=== PATIENT | female | born 1940 | race Caucasian/White ===

== ENCOUNTER 2017-04-05 08:31 | Day surgery (SDC) | payer OTHER ==
[~2017-04-05] VITALS: Ht 165.1 cm; Wt 92.5 kg
[~2017-04-05 08:31] MED LIST: ASPI325 PO; ASPI81CH PO; ATEN25; CLOP75 PO; GABA300 PO; HYDACE5 PO; HYDR1TAB94 PO; LISI5 PO; METO25ER PO; METO50ER PO; NITR.4SL SL; Nitrostat0.4 MG SL; OMEP20ER PO; SPIHYD PO
[2017-04-05] MEDS ORDERED: ACET325 (09:01)
== END 2017-04-05 12:05 | disposition home or self-care (01) ==
LOC: ORSCSDS 08:31
PROVIDERS: Podiatrist Foot & Ankle Surgery
PROC: 0SGQ04Z Fusion of Left Toe Phalangeal Joint with Internal Fixation Device, Open Approach (ICD-10-PCS; principal; 2017-04-05 09:55)
DX: M12.872 Other specific arthropathies, not elsewhere classified, left ankle and foot (principal); I10 Essential (primary) hypertension; J44.9 Chronic obstructive pulmonary disease, unspecified; I25.10 Atherosclerotic heart disease of native coronary artery without angina pectoris; Z87.891 Personal history of nicotine dependence; E11.9 Type 2 diabetes mellitus without complications; Z86.73 Personal history of transient ischemic attack (TIA), and cerebral infarction without residual deficits; Z79.82 Long term (current) use of aspirin; Z79.899 Other long term (current) drug therapy
CPT/HCPCS: 82947; C1713; C1769; J0171; J0690; J1100; J2250; J2405; J3010; J7120

== ENCOUNTER 2018-02-21 05:20 | Day surgery (SDC) | payer OTHER ==
[~2018-02-21] VITALS: Ht 162.6 cm; Wt 96.1 kg
[~2018-02-21 05:20] MED LIST changes: +ACET325
== END 2018-02-21 11:43 | disposition home or self-care (01) ==
LOC: ORSCSDS 05:20
PROVIDERS: Podiatrist Foot & Ankle Surgery
PROC: 0SPQ04Z Removal of Internal Fixation Device from Left Toe Phalangeal Joint, Open Approach (ICD-10-PCS; principal; 2018-02-21 10:15)
DX: T84.84XA Pain due to internal orthopedic prosthetic devices, implants and grafts, initial encounter (principal); I10 Essential (primary) hypertension; I25.10 Atherosclerotic heart disease of native coronary artery without angina pectoris; E66.01 Morbid (severe) obesity due to excess calories; Z68.36 Body mass index [BMI] 36.0-36.9, adult; Z79.899 Other long term (current) drug therapy
CPT/HCPCS: J0690; J3010; J7120

== ENCOUNTER 2019-03-12 08:40 | Day surgery (SDC) | payer OTHER ==
[~2019-03-12] VITALS: Ht 162.6 cm; Wt 95.4 kg
[~2019-03-12 08:40] MED LIST changes: +ATOR80 PO; +LISI20 PO; +Lopressor 25 mg25 MG PO; +Norco 7.5-3251 EACH PO; +VITAMIN D32000 UNI3 PO
--- NOTE | 2019-03-12 16:04 | NUR ---
PT DISCHARGE INSTRUCTIONS GONE OVER WITH HER AND SPOUSE. BOTH VERBALIZE UNDERSTANDING OF INSTRUCTIONS. SALINE LOCK OUT WITH CATHETER INTACT. CLOTH DOT PLACED RIGHT RADIAL SITE AND ARM BOARD IN PLACE. PT TO PRIVATE VEHICLE WITH ESCORT.
== END 2019-03-12 16:00 | disposition home or self-care (01) ==
LOC: MHTC 08:40
PROC: 4A023N7 Measurement of Cardiac Sampling and Pressure, Left Heart, Percutaneous Approach (ICD-10-PCS; principal; 2019-03-12)
PROC: B201YZZ Plain Radiography of Multiple Coronary Arteries using Other Contrast (ICD-10-PCS; principal; 2019-03-12)
DX: I25.119 Atherosclerotic heart disease of native coronary artery with unspecified angina pectoris (principal); E78.5 Hyperlipidemia, unspecified; I12.9 Hypertensive chronic kidney disease with stage 1 through stage 4 chronic kidney disease, or unspecified chronic kidney disease; N18.9 Chronic kidney disease, unspecified; M19.90 Unspecified osteoarthritis, unspecified site; I70.1 Atherosclerosis of renal artery; Z95.5 Presence of coronary angioplasty implant and graft; Z88.5 Allergy status to narcotic agent; Z88.6 Allergy status to analgesic agent; Z88.8 Allergy status to other drugs, medicaments and biological substances
CPT/HCPCS: 93454; 99152; 99153; C1769; C1894; J0360; J1644; J2250; J2405; J3010; J7030; Q9967

== ENCOUNTER → 2020-05-06 | Outpatient (CLI) | payer OTHER ==
[~2020-05-06] MED LIST changes: +Norco 5-325 Ta1 EACH PO; +Zofran4 MG PO
== END | disposition home or self-care (01) ==
LOC: LAB 14:20 → LAB SHORT 14:20
DX: L08.9 Local infection of the skin and subcutaneous tissue, unspecified (principal)
CPT/HCPCS: 87070; 87205

== ENCOUNTER → 2020-08-18 | Outpatient (CLI) | payer OTHER | LOC: LAB 14:00 → LAB SHORT 14:00 | DX: L08.9 Local infection of the skin and subcutaneous tissue, unspecified (principal) | CPT/HCPCS: 87070; 87205 ==

== ENCOUNTER 2020-09-10 07:15 | Emergency (ER) | payer OTHER ==
[~2020-09-10] VITALS: Ht 162.6 cm; Wt 113.4 kg
[~2020-09-10 07:15] MED LIST changes: -Norco 5-325 Ta1 EACH PO; -Zofran4 MG PO
[2020-09-10 08:56] LABS: BASOPHILS ABSOLUTE AUTO 0.06 K/mm3 (0.00-0.23); BASOPHILS PERCENT AUTO 1 % (0-2); EOSINOPHILS ABSOLUTE AUTO 0.13 K/mm3 (0.00-0.68); EOSINOPHILS PERCENT AUTO 1 % (0-6); Hematocrit 42.3 % (33.0-51.0); Hemoglobin 14.2 g/dL (11.5-16.0); IMMATURE GRAN ABSOLUTE AUTO 0.03 K/mm3 (0.00-0.10); IMMATURE GRAN PERCENT AUTO 0 % (0-1); LYMPHOCYTES ABSOLUTE AUTO 2.89 K/mm3 (0.84-5.20); LYMPHOCYTES PERCENT AUTO 31 % (21-46); MONOCYTES ABSOLUTE AUTO 1.13 K/mm3 (0.16-1.47); MONOCYTES PERCENT AUTO 12 % (4-13); Mean Corpuscular HGB 30.9 pg (26.0-34.0); Mean Corpuscular HGB Conc 33.6 g/dL (31.5-36.5); Mean Corpuscular Volume 92 fL (80-100); Mean Platelet Volume 9.6 fL (9.1-12.4); NEUTROPHILS PERCENT AUTO 54 % (41-73); Platelet Count 206 K/mm3 (150-400); RDW Standard Deviation 43.8 fL (35.1-46.3); Red Blood Cell Count 4.59 M/mm3 (3.80-5.20); White Blood Cell Count 9.24 K/mm3 (4.00-11.30)
[2020-09-10 09:04] LABS: Appearance, Urine Clear (Clear); Bilirubin, Urine Neg (Neg); Blood, Urine 1+ (Neg); Color, Urine Yellow (P-Yellow); Glucose Qualitative, Urine Neg (Neg); Ketones, Urine Neg (Neg); Leukocyte Esterase, Urine 2+ (Neg); Nitrite, Urine Neg (Neg); Protein, Urine 2+ (Neg); Urobilinogen, Urine NORM (Normal)
[2020-09-10 09:17] LABS: Alanine Aminotransfer (ALT/SGP 19 U/L (12-78); Albumin, Blood 3.7 g/dL (3.4-5.0); Albumin/Globulin Ratio 0.9 (0.8-1.8); Alk Phos 56 U/L (50-136); Anion Gap 4 mmol/L (6-16); Aspartate Aminotrans (AST/SGOT 13 U/L (12-37); Bilirubin, Total 0.5 mg/dL (0.1-1.0); Blood Urea Nitrogen 24 mg/dL (8-24); Bun/Creatinine Ratio 27.8 (12.0-20.0); CO2, Blood 28 mmol/L (21-32); Calcium, Blood 9.4 mg/dL (8.5-10.1); Chloride, Blood 106 mmol/L (98-108); Creatinine, Blood 0.86 mg/dL (0.40-1.00); Globulin, Blood 3.9 g/dL (2.2-4.0); Glomerular Filtration Rate >60 (60-); Glucose, Blood 90 mg/dL (70-99); Potassium, Blood 4.1 mmol/L (3.5-5.5); Sodium, Blood 138 mmol/L (136-145); Total Protein, Blood 7.6 g/dL (6.4-8.2)
[2020-09-10 09:23] LABS: Bacteria Few /hpf; Red Blood Cells, Urine 0-2 /hpf (0-2); Squamous Epithelial Cells Mod /hpf (Few)
[2020-09-10] MEDS ORDERED: Norco 5-325 Ta1 EACH PO (10:55)
[2020-09-10] MEDS ORDERED: Zofran4 MG PO (10:55)
== END 2020-09-10 11:03 | disposition home or self-care (01) ==
LOC: ER 07:15
PROVIDERS: Emergency Medicine
DX: R10.30 Lower abdominal pain, unspecified (principal); R59.0 Localized enlarged lymph nodes; Z88.5 Allergy status to narcotic agent; Z88.6 Allergy status to analgesic agent; Z88.8 Allergy status to other drugs, medicaments and biological substances; Z79.82 Long term (current) use of aspirin; Z79.899 Other long term (current) drug therapy
CPT/HCPCS: 36415; 74177; 80053; 81001; 83690; 85025; 87086; 96374-59; 99284-25; J1885; Q9967

== ENCOUNTER 2021-06-19 06:10 | Day surgery (SDC) | payer OTHER ==
[~2021-06-19] VITALS: Ht 162.6 cm; Wt 98.4 kg
[~2021-06-19 06:10] MED LIST changes: +Norco 5-325 Ta1 EACH PO; +Zofran4 MG PO
[2021-06-19] MEDS ORDERED: MELO7.5 PO (07:02)
[2021-06-19] MEDS ORDERED: METF500 PO (07:02)
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
== END 2021-06-19 10:35 | disposition home or self-care (01) ==
LOC: ORSCSDS 06:10
PROVIDERS: Orthopaedic Surgery
PROC: 0RBJ4ZZ Excision of Right Shoulder Joint, Percutaneous Endoscopic Approach (ICD-10-PCS; principal; 2021-06-19 07:30)
DX: M75.121 Complete rotator cuff tear or rupture of right shoulder, not specified as traumatic (principal); M75.41 Impingement syndrome of right shoulder; M75.51 Bursitis of right shoulder; M19.011 Primary osteoarthritis, right shoulder; S46.111A Strain of muscle, fascia and tendon of long head of biceps, right arm, initial encounter; I10 Essential (primary) hypertension; I25.10 Atherosclerotic heart disease of native coronary artery without angina pectoris; Z79.899 Other long term (current) drug therapy; E66.9 Obesity, unspecified; Z68.36 Body mass index [BMI] 36.0-36.9, adult
CPT/HCPCS: 82947; A9270; J0171; J0690; J1100; J2370; J2405; J2704; J3010; J7120

== ENCOUNTER 2022-05-21 06:11 | Day surgery (SDC) | payer OTHER ==
[~2022-05-21] VITALS: Ht 162.6 cm; Wt 98.3 kg
[~2022-05-21 06:11] MED LIST changes: -ACET325; +Acetaminophen650 M1 PO; +MELO7.5 PO; +METF500 PO
[2022-05-21] MEDS ORDERED: PRINIVIL5 M1 PO (07:42)
[2022-05-21] MEDS ORDERED: MOBIC15 MG PO (07:43)
[2022-05-21] MEDS ORDERED: METO25 PO (07:44)
[2022-05-21] MEDS ORDERED: HYDR1TAB94 (07:46)
--- NOTE | 2022-05-21 08:04 | NUR ---
05/21/22 0804 Gisel Ortega 0755: PRE-OP MEDS OXYCODONE AND TYLENOL WILL BE GIVEN IN POST-OP PER DR WILSON D/T NAUSEA
--- NOTE | 2022-05-21 09:06 | NUR ---
05/21/22 0906 MARGARETTE DE LA GARZA 0.1MG OF EPI ADDED TO 20MLS OF ROPIVACAINE 0.5% TO CREATE A LOCAL SOLUTION OF ROPIVACAINE 0.5% WITH EPI 1:200,000. LOCAL POURED ONTO STERILE FIELD FOR USE DURING CASE.
--- NOTE | 2022-05-21 12:52 | NUR ---
05/21/22 1252 Ariana Harrison LATE ENTRY- WHILE IN STEP DOWN PT DENIED NAUSEA AND TOLERATED PO CRACKERS AND PO FLUIDS WELL. VSS WHILE IN STEP DOWN. PT STATED HER PAIN WAS "MINIMAL 2/10" AT THE OP SITE AND STATED IT WAS TOLERABLE. PT HAD AND SON AT CHAIRSIDE. RN WENT OVER DISCHARGE INSTRUCTIONS WITH PT AND FAMILY UNTIL ALL QUESTIONS WERE ANSWERED. PT DEMONSTRATED THE INCENTIVE SPIROMETER X4. RN ASSISTED PT TO DRESS AND ADJUSTED THE SLING FOR COMFORT AND POSITIONING WHILE DEMONSTRATING PLACEMENT FOR PT AND . PT TAKEN OUT TO CAR VIA WHEELCHAIR. PT AND FAMILY VOICED SATISFACTION WITH THE CARE TODAY AT THE [facility]. TXA RAN FROM [id number] ORDERS. TEACHING R/T THE SCOPE PATCH PROVIDED TO PT AND PT'S FAMILY. TYLENOL GIVEN AT 1100 BUT PT REFUSED THE PO OXYCODONE WHILE IN STEP DOWN. DR WILSON NOTIFIED AND OK'D.
== END 2022-05-21 12:20 | disposition home or self-care (01) ==
LOC: ORSCSDS 06:11
PROVIDERS: Orthopaedic Surgery
PROC: 0RRJ00Z Replacement of Right Shoulder Joint with Reverse Ball and Socket Synthetic Substitute, Open Approach (ICD-10-PCS; principal; 2022-05-21 07:30)
DX: M19.011 Primary osteoarthritis, right shoulder (principal); I10 Essential (primary) hypertension; I25.10 Atherosclerotic heart disease of native coronary artery without angina pectoris; E11.9 Type 2 diabetes mellitus without complications; Z79.84 Long term (current) use of oral hypoglycemic drugs; E66.9 Obesity, unspecified; Z68.37 Body mass index [BMI] 37.0-37.9, adult; Z86.73 Personal history of transient ischemic attack (TIA), and cerebral infarction without residual deficits; Z79.899 Other long term (current) drug therapy
CPT/HCPCS: 73030; 82947; A9270; C1713; C1776; J0171; J0696; J1100; J1200; J2370; J2405; J2704; J2795; J3010; J3370; J7120

== ENCOUNTER 2022-07-14 07:19 | Emergency (ER) | payer OTHER ==
[~2022-07-14] VITALS: Ht 165.1 cm; Wt 96.2 kg
[~2022-07-14 07:19] MED LIST changes: +HYDR1TAB94; +METO25 PO; +MOBIC15 MG PO; +PRINIVIL5 M1 PO
[2022-07-14 07:59] LABS: BASOPHILS ABSOLUTE AUTO 0.05 K/mm3 (0.00-0.23); BASOPHILS PERCENT AUTO 0 % (0-2); EOSINOPHILS ABSOLUTE AUTO 0.03 K/mm3 (0.00-0.68); EOSINOPHILS PERCENT AUTO 0 % (0-6); Hematocrit 38.6 % (33.0-51.0); Hemoglobin 12.8 g/dL (11.5-16.0); IMMATURE GRAN ABSOLUTE AUTO 0.08 K/mm3 (0.00-0.10); IMMATURE GRAN PERCENT AUTO 1 % (0-1); LYMPHOCYTES ABSOLUTE AUTO 1.06 K/mm3 (0.84-5.20); LYMPHOCYTES PERCENT AUTO 9 % (21-46); MONOCYTES ABSOLUTE AUTO 0.97 K/mm3 (0.16-1.47); MONOCYTES PERCENT AUTO 8 % (4-13); Mean Corpuscular HGB 30.4 pg (26.0-34.0); Mean Corpuscular HGB Conc 33.2 g/dL (31.5-36.5); Mean Corpuscular Volume 92 fL (80-100); Mean Platelet Volume 10.1 fL (9.1-12.4); NEUTROPHILS ABSOLUTE AUTO 10.17 K/mm3 (1.96-9.15); NEUTROPHILS PERCENT AUTO 82 % (41-73); Platelet Count 193 K/mm3 (150-400); RDW Coefficient Variation 13.3 % (11.7-14.2); RDW Standard Deviation 45.1 fL (35.1-46.3); Red Blood Cell Count 4.21 M/mm3 (3.80-5.20); White Blood Cell Count 12.36 K/mm3 (4.00-11.30)
[2022-07-14 08:22] LABS: Albumin, Blood 2.3 g/dL (3.4-5.0); Albumin/Globulin Ratio 0.8 (0.8-1.8); Bilirubin, Total 0.6 mg/dL (0.1-1.0); Bun/Creatinine Ratio 29.7 (12.0-20.0); Calcium, Blood 6.7 mg/dL (8.5-10.1); Creatinine, Blood 0.64 mg/dL (0.40-1.00); Globulin, Blood 2.9 g/dL (2.2-4.0); Potassium, Blood 2.8 mmol/L (3.5-5.5); Total Protein, Blood 5.2 g/dL (6.4-8.2)
[2022-07-14 10:35] LABS: Influenza A, PCR NEGATIVE (NEGATIVE); Influenza B, PCR NEGATIVE (NEGATIVE); Resp Syncytial Virus, PCR NEGATIVE (NEGATIVE); SARS-Cov-2 (COVID-19) PCR, MMC NEGATIVE (NEGATIVE)
[2022-07-14 13:41] LABS: Source, Urine Clean Catch
[2022-07-14 14:17] LABS: Appearance, Urine Hazy (Clear); Bilirubin, Urine Neg (Neg); Blood, Urine 2+ (Neg); Color, Urine Yellow (P-Yellow); Glucose Qualitative, Urine Neg (Neg); Ketones, Urine 2+ (Neg); Leukocyte Esterase, Urine 1+ (Neg); Nitrite, Urine Pos (Neg); Protein, Urine 3+ (Neg); Urobilinogen, Urine NORM (Normal)
[2022-07-14 14:42] LABS: Squamous Epithelial Cells Few /hpf (Few)
[2022-07-14 14:43] LABS: Bacteria Many /hpf; Granular Casts 0-2 /lpf (0); Hyaline Casts 0-2 /lpf (0-2)
[2022-07-14] MEDS ORDERED: AMOCLA875 PO (15:10)
[2022-07-14 15:30] VITALS: BP 98/76
== END 2022-07-14 15:51 | disposition home or self-care (01) ==
LOC: ER 07:19
PROVIDERS: Emergency Medicine; Physician Assistant
DX: N39.0 Urinary tract infection, site not specified (principal); E87.6 Hypokalemia; E83.42 Hypomagnesemia; E83.51 Hypocalcemia; I25.10 Atherosclerotic heart disease of native coronary artery without angina pectoris; Z88.8 Allergy status to other drugs, medicaments and biological substances; Z88.5 Allergy status to narcotic agent; Z88.6 Allergy status to analgesic agent; Z79.899 Other long term (current) drug therapy; Z79.82 Long term (current) use of aspirin; Z20.822 Contact with and (suspected) exposure to COVID-19
CPT/HCPCS: 0241U; 36415; 71045; 80053; 81001; 83605; 83735; 85025; 87077; 87086; 87186; 93005; 93010; 96361; 96365; 96366; 96368; 96375; 96376; 99284-25; A9270; J2270; J2405; J3475; J3480; J7030; J7050

== ENCOUNTER 2022-07-16 16:02 | Inpatient (IN) | payer OTHER ==
[~2022-07-16] VITALS: Ht 165.1 cm; Wt 103.4 kg
[~2022-07-16 16:02] MED LIST changes: +AMOCLA875 PO; -HYDR1TAB94
[2022-07-16 16:59] LABS: Hematocrit 38.5 % (33.0-51.0); Hemoglobin 12.8 g/dL (11.5-16.0); Mean Corpuscular HGB 30.4 pg (26.0-34.0); Mean Corpuscular HGB Conc 33.2 g/dL (31.5-36.5); Mean Corpuscular Volume 91 fL (80-100); Mean Platelet Volume 10.7 fL (9.1-12.4); Platelet Count 291 K/mm3 (150-400); RDW Coefficient Variation 14.6 % (11.7-14.2); RDW Standard Deviation 49.1 fL (35.1-46.3); Red Blood Cell Count 4.21 M/mm3 (3.80-5.20); White Blood Cell Count 15.88 K/mm3 (4.00-11.30)
[2022-07-16 17:15] LABS: Albumin, Blood 2.7 g/dL (3.4-5.0); Albumin/Globulin Ratio 0.6 (0.8-1.8); Bilirubin, Total 0.6 mg/dL (0.1-1.0); Calcium, Blood 9.1 mg/dL (8.5-10.1); Globulin, Blood 4.9 g/dL (2.2-4.0); Potassium, Blood 4.4 mmol/L (3.5-5.5); Total Protein, Blood 7.6 g/dL (6.4-8.2)
[2022-07-16 17:58] LABS: BAND PERCENT MAN 17 % (0-8); BASOPHILS PERCENT MAN 0 % (0-2); EOSINOPHILS PERCENT MAN 0 % (0-6); LYMPHOCYTES ABSOLUTE MAN 1.27 K/mm3 (0.84-5.20); LYMPHOCYTES PERCENT MAN 8 % (21-46); MONOCYTES ABSOLUTE MAN 0.47 K/mm3 (0.16-1.47); MONOCYTES PERCENT MAN 3 % (4-13); MYELOCYTE ABSOLUTE MAN 0.15 K/mm3 (0.00-0.00); MYELOCYTE PERCENT MAN 1 % (0-0); NEUTROPHILS ABSOLUTE MAN 13.97 K/mm3 (1.96-9.15); SEG NEUTROPHILS PERCENT MAN 71 % (41-73); TOTAL CELLS COUNTED 100
[2022-07-16 18:46] LABS: Source, Urine Clean Catch
[2022-07-16 19:00] LABS: Appearance, Urine Hazy (Clear); Blood, Urine 1+ (Neg); Color, Urine Amber (P-Yellow); Glucose Qualitative, Urine Neg (Neg); Ketones, Urine 1+ (Neg); Leukocyte Esterase, Urine 1+ (Neg); Nitrite, Urine Neg (Neg); Protein, Urine 3+ (Neg); Urobilinogen, Urine 2+ (Normal)
[2022-07-16 19:15] LABS: Bilirubin, Urine 1+ (Neg)
[2022-07-16 19:16] LABS: Hyaline Casts 0-2 /lpf (0-2); Squamous Epithelial Cells Many /hpf (Few)
[2022-07-16 19:17] LABS: Bacteria Many /hpf; Renal Epithelial Rare /hpf (0-Rare); Transitional Epithelial Cells Few /hpf (0-Rare)
[2022-07-17] VITALS (7 sets, daily range): BP systolic 107–157; BP diastolic 58–849
[2022-07-17 00:45] LABS: Adenovirus Not Detected (NOT DETECT); Bordetella pertussis Not Detected (NOT DETECT); Chlamydophila pneumoniae Not Detected (NOT DETECT); Coronavirus 229E Not Detected (NOT DETECT); Coronavirus HKU1 Not Detected (NOT DETECT); Coronavirus NL63 Not Detected (NOT DETECT); Coronavirus OC43 Not Detected (NOT DETECT); Human Metapneumovirus Not Detected (NOT DETECT); Human Rhinovirus/Enterovirus Not Detected (NOT DETECT); Influenza A/2009-H1 Not Detected (NOT DETECT); Influenza A/H1 Not Detected (NOT DETECT); Influenza A/H3 Not Detected (NOT DETECT); Influenza B Not Detected (NOT DETECT); Mycoplasma pneumoniae Not Detected (NOT DETECT); Parainfluenza Virus 1 Not Detected (NOT DETECT); Parainfluenza Virus 2 Not Detected (NOT DETECT); Parainfluenza Virus 3 Not Detected (NOT DETECT); Parainfluenza Virus 4 Not Detected (NOT DETECT); Respiratory Syncytial Virus Not Detected (NOT DETECT); SARS-Cov-2 (COVID-19), BioFire Not Detected (NOT DETECT)
[2022-07-17 04:57] LABS: Hematocrit 35.4 % (33.0-51.0); Hemoglobin 11.7 g/dL (11.5-16.0); Mean Corpuscular HGB 30.4 pg (26.0-34.0); Mean Corpuscular HGB Conc 33.1 g/dL (31.5-36.5); Mean Corpuscular Volume 92 fL (80-100); Mean Platelet Volume 10.4 fL (9.1-12.4); Platelet Count 252 K/mm3 (150-400); RDW Coefficient Variation 14.9 % (11.7-14.2); RDW Standard Deviation 50.1 fL (35.1-46.3); Red Blood Cell Count 3.85 M/mm3 (3.80-5.20)
[2022-07-17 05:08] LABS: Bun/Creatinine Ratio 33.7 (12.0-20.0); Calcium, Blood 8.4 mg/dL (8.5-10.1); Creatinine, Blood 0.89 mg/dL (0.40-1.00); Potassium, Blood 4.2 mmol/L (3.5-5.5)
[2022-07-17 05:57] LABS: BAND PERCENT MAN 18 % (0-8); BASOPHILS PERCENT MAN 0 % (0-2); EOSINOPHILS PERCENT MAN 0 % (0-6); LYMPHOCYTES PERCENT MAN 4 % (21-46); METAMYELOCYTE ABSOLUTE MAN 0.15 K/mm3 (0.00-0.00); METAMYELOCYTE PERCENT MAN 1 % (0-0); MONOCYTES ABSOLUTE MAN 0.15 K/mm3 (0.16-1.47); MONOCYTES PERCENT MAN 1 % (4-13); MYELOCYTE ABSOLUTE MAN 0.15 K/mm3 (0.00-0.00); MYELOCYTE PERCENT MAN 1 % (0-0); NEUTROPHILS ABSOLUTE MAN 14.13 K/mm3 (1.96-9.15); SEG NEUTROPHILS PERCENT MAN 75 % (41-73); TOTAL CELLS COUNTED 100
--- NOTE | 2022-07-17 06:11 | NUR ---
SHIFT SUMMARY PT IS A NEW ADMIT THIS SHIFT. SHE WAS RECENTLY HERE ON SATURDAY W/ A BLADDER INFECTION. SHE CAME BACK DUE TO INCREASED WEAKNESS, SOB, AND NEEDING MORE HELP FROM HER FAMILY TO GET AROUND. AT HER BASELINE SHE GETS AROUND W/O ANY ASSISTANCE OR OXYGEN. SHE HAS BEEN ON 2L ON THE OXYMIZER W/ SP02 >90%. SHE IS SOB W/ ACTIVITY BUT DENIES SOB WHEN RESTING IN BED. ON TELE SHE HAS BEEN SR 80 S-90 S AND SHE DENIES ANY ANGINA OR CHEST PRESSURE. PT HAS BEEN VERY DIAPHORETIC THIS SHIFT, SHE CAME TO THE ROOM W/ AN ORAL TEMP OF 99.1 BUT IT HAS DECREASED. SHE WAS MEDICATED IN THE ED W/ TYLENOL. THE PT HAS CHRONIC BACK PAIN DUE TO HER DEGENERATIVE DISC DISEASES AND HAS NEEDED PRN PAIN MEDICATIONS. SHE IS A1-2P MODERATE ASSIST TO THE BSC W/ A FWW. HER BED ALARM IS ON, BED IS IN A LOW POSITION, AND CALL LIGHT IS IN REACH. SEE NOTES FOR ANY UPDATES.
--- NOTE | 2022-07-17 10:15 | NUR ---
AM NOTE: PATIENT ALERT AND ORIENTED X4. VERY SOFT SPOKEN. PERRLA. DENIES NUMBNESS/TINGLING. UP WITH SBA TO BSC. OVERALL WEAK. SOMEWHAT DROWSY THIS AM. ON 1-2L OXYMIZER SATING UPPER 90'S. BASELINE ROOM AIR. LUNGS SOUNDING CLEAR/DIM IN UPPER LOBES AND POSSIBLE FINE CRACKLES IN LOWER RIGHT LOBE. OCCASIONAL NONPRODUCTIVE COUGH. TELE SHOWING SINUS RHYTHM WITH HR 80-90'S. BP SLIGHTLY ELEVATED THIS AM, PO CARDIAC MEDS ADMINISTERED PER EMAR. DENIES CHEST PAIN/PRESSURE/PALPITATIONS. MINIMAL EDEMA NOTED ON BLE. UPON SHIFT START PATIENT NPO, THIS RN PLACED CALL TO DR. ARAUJO, NEW ORDERS FOR CLEAR LIQUID DIET. PATIENT TOLERATING CLEARS AT THIS TIME. UP TO BSC TO VOID. ATTENDS IN PLACE. DENIES CURRENT NAUSEA/ABDOMINAL PAIN. NORMAL SALINE INFUSING PER EMAR. ACHS BLOOD SUGARS. EDUCATED BUSINESS DEVELOPMENT REPRESENTATIVE LIGHT. PATIENT SLEEPING AT THIS TIME.
--- NOTE | 2022-07-17 12:01 | NUR ---
DR. ARAUJO IN TO ASSESS PATIENT. PATIENT USES CALL LIGHT EARLIER AND REPORTS NAUSEA AND ABDOMINAL TENDERNESS TO THIS RN. IV ZOFRAN ADMINISTERED WITH MINIMAL RELIEF TO NAUSEA. PLAN FOR CT SCAN OF ABDOMIN AND PELVIS WITH CONTRAST PER DR. ARAUJO. ORDERS IN PLACE. PATIENT SITTING UP ON EDGE OF BED ATTEMPTING SOME CLEAR LIQUIDS. IV SALINE CONTINUES TO INFUSE. BOTH DAUGHTERS SHIRA AND MARVIN CALLED AND UPDATED VIA PHONE WITH PATIENT PERMISSION.
--- NOTE | 2022-07-17 13:51 | NUR ---
CT OF ABDOMIN/PELVIS WITH CONTRAST COMPLETED. PATIENT LAYING IN BED AT THIS TIME.
--- NOTE | 2022-07-17 17:33 | NUR ---
SHIFT SUMMARY: NO ACUTE CHANGES, SEE PREVIOUS NOTES. PATIENT SEEMS TO BE FEELING BETTER AND IN BETTER SPIRITS TOWARDS END OF SHIFT. FAMILY AT BEDSIDE AND UPDATED ON PLAN OF CARE. REMAINS ON ROOM AIR. SPUTUM SAMPLE SENT TO LAB. TELE CONTIUES TO SHOW SR WITH HR 80-90'S. NO TELE EVENTS THIS SHIFT. BP STABLE. INTERMIT ABDOMINAL PAIN/NAUSEA. TOLERATING CLEAR LIQUIDS AT THIS TIME. UP TO BSC TO VOID. URINE SAMPLE NEEDING TO BE SENT TO LAB. ABX AND NS INFUSING PER EMAR. CALL LIGHT IN REACH. DENIES NEEDS AT THIS TIME.
--- NOTE | 2022-07-17 22:04 | NUR ---
daughter sandro called about abd ct scans and was updated. pt. approved the update.
[2022-07-18 03:51] LABS: Hematocrit 36.7 % (33.0-51.0); Mean Corpuscular HGB Conc 32.7 g/dL (31.5-36.5); Mean Corpuscular Volume 92 fL (80-100); Mean Platelet Volume 10.4 fL (9.1-12.4); Platelet Count 278 K/mm3 (150-400); RDW Coefficient Variation 15.1 % (11.7-14.2); RDW Standard Deviation 50.9 fL (35.1-46.3)
[2022-07-18 03:59] VITALS: BP 157/93
[2022-07-18 04:11] LABS: Albumin, Blood 2.3 g/dL (3.4-5.0); Albumin/Globulin Ratio 0.5 (0.8-1.8); Bilirubin, Total 0.4 mg/dL (0.1-1.0); Bun/Creatinine Ratio 36.7 (12.0-20.0); Calcium, Blood 8.6 mg/dL (8.5-10.1); Creatinine, Blood 0.74 mg/dL (0.40-1.00); Globulin, Blood 4.3 g/dL (2.2-4.0); Potassium, Blood 3.7 mmol/L (3.5-5.5); Total Protein, Blood 6.6 g/dL (6.4-8.2)
--- NOTE | 2022-07-18 05:48 | NUR ---
SHIFT SUMMARY PT IS A&OX4, 1P SBA W/ FWW (BATHROOM PRIVILEGES), HAS BEEN SR 90 S ON TELE W/ ONE SMALL RUN OF PVCS ,AND SHE HAS BEEN ON ROOM AIR THE ENTIRE NIGHT. THE PT STATES SHE IS FEELING ALOT BETTER SINCE COMING IN TO THE HOSPITAL LAST NIGHT. SHE IS ABLE TO BOOST AND MOVE HERSELF IN BED AND CALLS APPROPRIATELY FOR HER NEEDS. PT GETS A LITTLE SOB W/ ACTIVITY, BUT CAN TOLERATE MORE MOVEMENT BEFORE GETTING SOB. SHE HAD ONE BOWEL MOVEMENT, AND A NEW SPUTUM SAMPLE WAS OBTAINED. IT WAS BLOOD TINGED. HER NS HAS BEEN D/C D PER EMAR, AND SHE HAS RECEIVED ANTIBIOTICS AND STEROIDS THIS SHIFT. HER BED IS IN A LOW POSITION, AND CALL LIGHT IS IN REACH. SEE NOTES FOR ANY UPDATES.
[2022-07-18 05:59] LABS: BAND PERCENT MAN 17 % (0-8); BASOPHILS PERCENT MAN 0 % (0-2); EOSINOPHILS PERCENT MAN 0 % (0-6); LYMPHOCYTES ABSOLUTE MAN 0.39 K/mm3 (0.84-5.20); LYMPHOCYTES PERCENT MAN 2 % (21-46); MONOCYTES ABSOLUTE MAN 0.78 K/mm3 (0.16-1.47); MONOCYTES PERCENT MAN 4 % (4-13); MYELOCYTE ABSOLUTE MAN 0.19 K/mm3 (0.00-0.00); MYELOCYTE PERCENT MAN 1 % (0-0); NEUTROPHILS ABSOLUTE MAN 18.13 K/mm3 (1.96-9.15); SEG NEUTROPHILS PERCENT MAN 76 % (41-73); TOTAL CELLS COUNTED 100
[2022-07-18 07:46] VITALS: BP 124/104
[2022-07-18 12:01] VITALS: BP 116/82
[2022-07-18 16:25] VITALS: BP 126/89
--- NOTE | 2022-07-18 17:18 | NUR ---
THIS NURSE IS NOW ASSUMING CARE AFTER JAYLIN RN FROM PCU GAVE REPORT. PATIENT WAS WHEELCHAIRED OVER TO HER NEW ROOM IN . PATIENT WAS A SBA FROM WHEELCHAIR TO BED. PATIENT IS LAYING IN BED WITH CALL LIGHT IN REACH.
--- NOTE | 2022-07-18 17:55 | NUR ---
PT TRANSFERRED TO 208 BEDSIDE REPORT GIVEN TO YASMANY GIORDANO. SHIFT SUMMARY: NO ACUTE CHANGE T/O THE SHIFT PT HAS BEEN UP IN THE CHAIR MOST OF THE SHIFT. VITALS HRR SR 90-100'S, SBP 120'S, SATS ABOVE 95% ON RA, AFEBRILE. NOTICE A CHANGE IN BP ON LEFT ARM SBP READ ELEVATED AT 180'S AND RIGHT ARM 120'S, PT MENTIONED THAT SHE HAS 50% STENOSIS IN EITHER ONE OF THE WHEN SHE HAD HER LAST ANGIO BUT COULDNT REMEMBER WHICH ARM HAS STENOSIS. BLOOD PRESSURE ON RIGHT ARM HAS BEEN USED SINCE THIS AM, PT DENIES ANY PAIN/PRESSURE. PT HAS BEEN PLEASANT ND COOPERATIVE. NO OTHER ISSUES ENCOUNTERED. AWAITING FOR SPUTUM CULTURE RESULT. PT ON IV ABO. ALL BELONGINGS SENT WITH THE PT, ACCOMPANIED BY PCT VIA WHEELCHAIR.
[2022-07-18 19:36] VITALS: BP 173/85
[2022-07-18 19:38] VITALS: BP 173/85
--- NOTE | 2022-07-19 04:05 | NUR ---
SUMMARY PT AOX4, SBA ASSIST IN ROOM. HAS HAD NO ACUTE EVENTS THIS EVENING. MEDICATED PER EMAR FOR PAIN. CONTINUES TO HAVE NON PRODUCTIVE COUGH. FLUTTER VALVE ORDERED AND INSTRUCTED ON USE. PT UP TO BATHROOM T/O SHIFT AND DOES GET SLIGHTLY SOB WITH ACTIVITY. REMAINS ON RA SPO2>94%. VSS. TELE IN PLACE WITH SR 90S-110 WITH ACTIVITY. CALLS APPROPRIATLY, WILL CONT. TO MONITOR AND REPORT TO DAY RN.
[2022-07-19 05:14] VITALS: BP 140/110
[2022-07-19 07:20] VITALS: BP 179/106
[2022-07-19 08:05] LABS: Hematocrit 36.3 % (33.0-51.0); Hemoglobin 12.3 g/dL (11.5-16.0); Mean Corpuscular HGB 30.4 pg (26.0-34.0); Mean Corpuscular HGB Conc 33.9 g/dL (31.5-36.5); Mean Corpuscular Volume 90 fL (80-100); Mean Platelet Volume 10.4 fL (9.1-12.4); NRBC ABSOLUTE 0.09 K/mm3 (0.00-0.02); NRBC Auto 0.4 /100 WBC (0.0-0.2); Platelet Count 364 K/mm3 (150-400); RDW Coefficient Variation 15.5 % (11.7-14.2); RDW Standard Deviation 51.6 fL (35.1-46.3); Red Blood Cell Count 4.04 M/mm3 (3.80-5.20); White Blood Cell Count 24.61 K/mm3 (4.00-11.30)
[2022-07-19 08:26] LABS: Vancomycin, Trough 19.2 ug/mL (5.0-10.0)
[2022-07-19 08:28] LABS: Albumin, Blood 2.4 g/dL (3.4-5.0); Albumin/Globulin Ratio 0.5 (0.8-1.8); Bilirubin, Total 0.3 mg/dL (0.1-1.0); Bun/Creatinine Ratio 40.5 (12.0-20.0); Calcium, Blood 8.5 mg/dL (8.5-10.1); Creatinine, Blood 1.11 mg/dL (0.40-1.00); Globulin, Blood 4.7 g/dL (2.2-4.0); Magnesium, Blood 2.6 mg/dL (1.6-2.4); Total Protein, Blood 7.1 g/dL (6.4-8.2)
--- NOTE | 2022-07-19 11:13 | NUR ---
IV PT R AC IV LEAKING. DRESSING CHANGED/REINFORCED, NO LONGER LEAKING.
[2022-07-19 11:59] LABS: BAND PERCENT MAN 6 % (0-8); BASOPHILS ABSOLUTE MAN 0.24 K/mm3 (0.00-0.23); BASOPHILS PERCENT MAN 1 % (0-2); EOSINOPHILS PERCENT MAN 0 % (0-6); LYMPHOCYTES % ATYPICAL MANUAL 3 % (0-0); LYMPHOCYTES ABSOLUTE MAN 2.46 K/mm3 (0.84-5.20); LYMPHOCYTES PERCENT MAN 7 % (21-46); METAMYELOCYTE ABSOLUTE MAN 0.24 K/mm3 (0.00-0.00); METAMYELOCYTE PERCENT MAN 1 % (0-0); MONOCYTES ABSOLUTE MAN 1.23 K/mm3 (0.16-1.47); MONOCYTES PERCENT MAN 5 % (4-13); NEUTROPHILS ABSOLUTE MAN 20.42 K/mm3 (1.96-9.15); SEG NEUTROPHILS PERCENT MAN 77 % (41-73); TOTAL CELLS COUNTED 100
[2022-07-19 12:50] VITALS: BP 188/98
--- NOTE | 2022-07-19 15:10 | NUR ---
ASSUMED CARE OF PATIENT PATIENT SITTING UP IN BED AT THIS TIME. CALL LIGHT IN REACH, NO CURRENT NEEDS.
[2022-07-19 15:12] VITALS: BP 187/95
--- NOTE | 2022-07-19 18:04 | NUR ---
NO ACUTE CHANGES SINCE ASSUMPTION OF CARE. PATIENT UP IN CHAIR, AMBULATED HALLWAYS. TOLERATING PO DIET WELL. A&O X4, COOPERATIVE & VERY PLEASANT. CALLS APPROPRIATELY W/ CALL LIGHT, IN REACH. WILL REPORT TO ONCOMING RN AT 1900.
[2022-07-19 19:58] VITALS: BP 150/90
[2022-07-19 21:51] VITALS: BP 150/90
[2022-07-20] VITALS (7 sets, daily range): BP systolic 137–150; BP diastolic 92–120
[2022-07-20 04:39] LABS: Hematocrit 33.7 % (33.0-51.0); Hemoglobin 11.4 g/dL (11.5-16.0); Mean Corpuscular HGB 30.3 pg (26.0-34.0); Mean Corpuscular HGB Conc 33.8 g/dL (31.5-36.5); Mean Corpuscular Volume 90 fL (80-100); Mean Platelet Volume 10.3 fL (9.1-12.4); NRBC ABSOLUTE 0.05 K/mm3 (0.00-0.02); NRBC Auto 0.3 /100 WBC (0.0-0.2); Platelet Count 348 K/mm3 (150-400); RDW Coefficient Variation 15.5 % (11.7-14.2); RDW Standard Deviation 50.8 fL (35.1-46.3); Red Blood Cell Count 3.76 M/mm3 (3.80-5.20); White Blood Cell Count 17.93 K/mm3 (4.00-11.30)
[2022-07-20 05:02] LABS: Bun/Creatinine Ratio 46.5 (12.0-20.0); Calcium, Blood 8.6 mg/dL (8.5-10.1); Creatinine, Blood 1.14 mg/dL (0.40-1.00); Potassium, Blood 4.4 mmol/L (3.5-5.5)
--- NOTE | 2022-07-20 05:08 | NUR ---
SHIFT SUMMARY VSS, HTN NOTED PER TREND. MEDICATED WITH PRN MEDICATION. PT REMAINS ASYMPTOMATIC. TELE READS SR 77. NO ACUTE EVENTS NOTED T/O THE NIGHT. PT SLEPT WELL, MEDICATED FOR PAIN ONCE WITH NORCO. PT AMBULATED TO THE BATHROOM MULTIPLE TIMES, VOIDING W/O DIFFICULTY. NO BM NOTED. PT TOLLERATING PO INTAKE W/O N/V. PT USING FLUTTER VALVE REGULARLY. REMAINS ON RA. PLAN FOR PT TO POSSIBLY D/C HOME TODAY. THE PATIENT IS CURRENTLY RESTING IN HER ROOM, IN NO DISTRESS, CALL LIGHT IN REACH
[2022-07-20 05:18] LABS: BAND PERCENT MAN 7 % (0-8); BASOPHILS PERCENT MAN 0 % (0-2); EOSINOPHILS PERCENT MAN 0 % (0-6); LYMPHOCYTES ABSOLUTE MAN 1.07 K/mm3 (0.84-5.20); LYMPHOCYTES PERCENT MAN 6 % (21-46); METAMYELOCYTE ABSOLUTE MAN 0.35 K/mm3 (0.00-0.00); METAMYELOCYTE PERCENT MAN 2 % (0-0); MONOCYTES ABSOLUTE MAN 0.71 K/mm3 (0.16-1.47); MONOCYTES PERCENT MAN 4 % (4-13); MYELOCYTE ABSOLUTE MAN 1.07 K/mm3 (0.00-0.00); MYELOCYTE PERCENT MAN 6 % (0-0); SEG NEUTROPHILS PERCENT MAN 75 % (41-73); TOTAL CELLS COUNTED 100
--- NOTE | 2022-07-20 15:30 | NUR ---
ELEVATED DIASTOLIC BP PT'S BLOOD PRESSURES HAVE BEEN HYPERTENSIVE, DIASTOLIC BLOOD PRESSURES HAVE BEEN TRENDING UPWARD AND REACHED 149/120. CRACKLES NOTED IN RLL, INCREASING PEDAL EDEMA, AND PT REPORTS FEELING INCREASED SOB ON EXERTION. WIL CHONG WAS CALLED AND HE PROVIDED ORDERS FOR LASIX 40 MG IV NOW. LASIX WERE ADMINISTERED. WILL FOLLOW UP IN 1 HOUR FOR BP CHECK.
--- NOTE | 2022-07-20 17:07 | NUR ---
1 HOUR BP CHECK B/P 148/95. DR. DE LA TORRE WAS NOTIFIED OF UPDATE AND NO NEW ORDERS WERE GIVEN. WILL CONTINUE TO MONITOR.
--- NOTE | 2022-07-20 19:22 | NUR ---
SHIFT SUMMARY PT IS A/O X4. 02 > 90% ON RA, BP HAS BEEN HIGH THIS SHIFT. DIASTOLIC WAS TRENDING UPWARD. DR. DE LA TORRE WAS NOTIFIED AND ORDERED LASIX. PT EXPRESSED SOB THIS SHIFT DURING ACTIVITY. SHE ALSO STATED HER FEET WERE FEELING MORE SWOLLEN. LASIX WERE ADMINISTERED, BLOOD PRESSURE IMPROVED. PT HAS BEEN TOLERATING PO INTAKE, VOIDING APPROPRIATELY. PT IS INDEPENDENT IN ROOM. SHE HAS BEEN EDUCATED ON THE USE OF HER CALL LIGHT AND UTILIZES IT APPROPRIATELY. WILL REPORT TO RECONCILIATION CLERK RN.
[2022-07-21 03:41] VITALS: BP 146/91
[2022-07-21 05:03] LABS: Hematocrit 34.3 % (33.0-51.0); Hemoglobin 11.4 g/dL (11.5-16.0); Mean Corpuscular HGB 29.8 pg (26.0-34.0); Mean Corpuscular HGB Conc 33.2 g/dL (31.5-36.5); Mean Corpuscular Volume 90 fL (80-100); Mean Platelet Volume 10.2 fL (9.1-12.4); NRBC ABSOLUTE 0.04 K/mm3 (0.00-0.02); NRBC Auto 0.3 /100 WBC (0.0-0.2); Platelet Count 375 K/mm3 (150-400); RDW Coefficient Variation 15.7 % (11.7-14.2); RDW Standard Deviation 51.8 fL (35.1-46.3); Red Blood Cell Count 3.82 M/mm3 (3.80-5.20); White Blood Cell Count 13.67 K/mm3 (4.00-11.30)
--- NOTE | 2022-07-21 05:19 | NUR ---
SHIFT SUMMARY PT A&OX4, AND COOPERATIVE WITH CARE. NO ACUTE CHANGES, VSS. MEDICATED ONCE WITH TYLENOL FOR PAIN. LAST TELE REPORT AT 0500 WAS SINUS @ 75 W/PAC'S. TOLERATING PO INTAKE. INDEPENDENT IN ROOM/BATHROOM. CALLS APPROPRIATELY, CALL LIGHT WITHIN REACH.
[2022-07-21 05:35] LABS: Albumin, Blood 2.3 g/dL (3.4-5.0); Albumin/Globulin Ratio 0.6 (0.8-1.8); Bilirubin, Total 0.5 mg/dL (0.1-1.0); Calcium, Blood 8.6 mg/dL (8.5-10.1); Creatinine, Blood 1.09 mg/dL (0.40-1.00); Globulin, Blood 3.7 g/dL (2.2-4.0); Potassium, Blood 4.6 mmol/L (3.5-5.5)
[2022-07-21 05:43] LABS: BAND PERCENT MAN 6 % (0-8); BASOPHILS PERCENT MAN 0 % (0-2); EOSINOPHILS PERCENT MAN 0 % (0-6); LYMPHOCYTES ABSOLUTE MAN 1.36 K/mm3 (0.84-5.20); LYMPHOCYTES PERCENT MAN 10 % (21-46); METAMYELOCYTE ABSOLUTE MAN 1.09 K/mm3 (0.00-0.00); METAMYELOCYTE PERCENT MAN 8 % (0-0); MONOCYTES ABSOLUTE MAN 1.23 K/mm3 (0.16-1.47); MONOCYTES PERCENT MAN 9 % (4-13); MYELOCYTE ABSOLUTE MAN 0.95 K/mm3 (0.00-0.00); MYELOCYTE PERCENT MAN 7 % (0-0); NEUTROPHILS ABSOLUTE MAN 9.02 K/mm3 (1.96-9.15); SEG NEUTROPHILS PERCENT MAN 60 % (41-73); TOTAL CELLS COUNTED 100
[2022-07-21 07:32] VITALS: BP 139/88
[2022-07-21 15:25] VITALS: BP 106/81
--- NOTE | 2022-07-21 16:04 | NUR ---
RESTING IN BED, DENIES ANY DISCOMFORT AT THIS TIME.
--- NOTE | 2022-07-21 16:55 | NUR ---
SUMMARY VSS, PT UP INDEPENDENTLY IN ROOM, DENIES ANY SOB OR ANY DISCOMFORT ALL DAY, AMBULATED IN HALLS AND SAT ON CHAIR FOR MEALS, NO COUGH NOTED, NO ACUTE CHANGES THIS SHIFT.
[2022-07-21 19:10] VITALS: BP 91/71
[2022-07-21 19:51] VITALS: BP 114/81
[2022-07-21 22:33] VITALS: BP 112/78
--- NOTE | 2022-07-22 04:06 | NUR ---
SHIFT SUMMARY PT A&OX4, COOPERATIVE WITH CARE, NO ACUTE CHANGES, VSS. MEDICATED FOR PAIN ONCE WITH TYLENOL. TOLERATING PO INTAKE. INDEPENDENT IN ROOM/BATHROOM. CALLS APPROPRIATELY, CALL LIGHT WITHIN REACH.
[2022-07-22 04:49] LABS: Hematocrit 35.5 % (33.0-51.0); Mean Corpuscular HGB 30.2 pg (26.0-34.0); Mean Corpuscular HGB Conc 33.8 g/dL (31.5-36.5); Mean Corpuscular Volume 89 fL (80-100); Mean Platelet Volume 10.1 fL (9.1-12.4); NRBC ABSOLUTE 0.02 K/mm3 (0.00-0.02); NRBC Auto 0.2 /100 WBC (0.0-0.2); Platelet Count 333 K/mm3 (150-400); RDW Coefficient Variation 15.2 % (11.7-14.2); RDW Standard Deviation 49.8 fL (35.1-46.3); Red Blood Cell Count 3.98 M/mm3 (3.80-5.20); White Blood Cell Count 10.27 K/mm3 (4.00-11.30)
[2022-07-22 05:14] LABS: Albumin, Blood 2.4 g/dL (3.4-5.0); Albumin/Globulin Ratio 0.7 (0.8-1.8); Bilirubin, Total 0.6 mg/dL (0.1-1.0); Calcium, Blood 8.2 mg/dL (8.5-10.1); Creatinine, Blood 1.2 mg/dL (0.40-1.00); Globulin, Blood 3.4 g/dL (2.2-4.0); Potassium, Blood 3.8 mmol/L (3.5-5.5); Total Protein, Blood 5.8 g/dL (6.4-8.2)
[2022-07-22 05:24] LABS: BAND PERCENT MAN 7 % (0-8); BASOPHILS PERCENT MAN 0 % (0-2); EOSINOPHILS ABSOLUTE MAN 0.51 K/mm3 (0.00-0.68); EOSINOPHILS PERCENT MAN 5 % (0-6); LYMPHOCYTES ABSOLUTE MAN 2.56 K/mm3 (0.84-5.20); LYMPHOCYTES PERCENT MAN 25 % (21-46); METAMYELOCYTE PERCENT MAN 2 % (0-0); MONOCYTES ABSOLUTE MAN 0.71 K/mm3 (0.16-1.47); MONOCYTES PERCENT MAN 7 % (4-13); MYELOCYTE PERCENT MAN 2 % (0-0); NEUTROPHILS ABSOLUTE MAN 6.05 K/mm3 (1.96-9.15); SEG NEUTROPHILS PERCENT MAN 52 % (41-73); TOTAL CELLS COUNTED 100
[2022-07-22 07:19] VITALS: BP 122/107
--- NOTE | 2022-07-22 07:35 | NUR ---
assumed care of pt 0430.this am,pt sitting up in chair.not hypotensive at this point.
--- NOTE | 2022-07-22 08:13 | NUR ---
A&OX4, UP TO CHAIR, DENIES ANY PAIN, SOB OR ANY DISCOMFORT, DENIES ANY DIZZINESS, REPORTS COUGHING UP "GREEN" SPUTUM, STATES "MY FEET DON'T FEEL TIGHT TODAY" CONT. TO MONITOR FOR ANY CHANGES.
[2022-07-22] MEDS ORDERED: AMOCLA875 PO (11:48)
[2022-07-22] MEDS ORDERED: FURO20 PO (11:48)
--- NOTE | 2022-07-22 12:58 | NUR ---
DC'D HOME, DC INSTRUCTIONS, VERBALIZED UNDERSTANDING.
== END 2022-07-22 13:00 | disposition home or self-care (01) | DRG 871 ==
LOC: ER 16:02 → SURS 22:31 → PCU 22:31 → SURS 07-18 17:37
PROVIDERS: Hospitalist; Internal Medicine; Student in an Organized Health Care Education/Training Program; ADMIT Internal Medicine
DX: A41.51 Sepsis due to Escherichia coli [E. coli] (principal); I50.33 Acute on chronic diastolic (congestive) heart failure; J18.9 Pneumonia, unspecified organism; J96.01 Acute respiratory failure with hypoxia; E87.20 Acidosis, unspecified; E87.1 Hypo-osmolality and hyponatremia; Z20.822 Contact with and (suspected) exposure to COVID-19; R65.20 Severe sepsis without septic shock; E11.65 Type 2 diabetes mellitus with hyperglycemia; I25.10 Atherosclerotic heart disease of native coronary artery without angina pectoris; I16.0 Hypertensive urgency; T38.0X5A Adverse effect of glucocorticoids and synthetic analogues, initial encounter; B95.2 Enterococcus as the cause of diseases classified elsewhere; I11.0 Hypertensive heart disease with heart failure; B88.8 Other specified infestations; E27.8 Other specified disorders of adrenal gland; E78.5 Hyperlipidemia, unspecified; Z90.89 Acquired absence of other organs; Z90.710 Acquired absence of both cervix and uterus; Z95.5 Presence of coronary angioplasty implant and graft; Z98.890 Other specified postprocedural states; Z88.6 Allergy status to analgesic agent; Z88.8 Allergy status to other drugs, medicaments and biological substances; Z79.2 Long term (current) use of antibiotics; Z79.82 Long term (current) use of aspirin; Z79.84 Long term (current) use of oral hypoglycemic drugs; Z79.899 Other long term (current) drug therapy
CPT/HCPCS: 0202U; 36415; 71045; 74177; 80048; 80053; 80202; 81001; 82947; 83605; 83735; 83880; 84145; 85025; 87040; 87086; 87449; 92610; 93005; 93010; 94640; 94644; 94664; 94760; 94762; 96365; 96367; 97110; 97116; 97162; 97165; 97530; 97535; 99285-25; A9270; C9113; J0360; J0692; J0696; J1650; J1940; J1956; J2405; J2930; J3370; J7030; J7050; J7512; Q9967

== ENCOUNTER 2022-08-02 08:31 | Observation (INO) | payer OTHER ==
[~2022-08-02] VITALS: Ht 162.6 cm; Wt 90.1 kg
[~2022-08-02 08:31] MED LIST changes: +FURO20 PO
[2022-08-02] MEDS ORDERED: NYSTATIN PO (08:50)
[2022-08-02] MEDS ORDERED: ONDA4ODT MM (08:50)
[2022-08-02 08:52] VITALS: BP 160/64
--- NOTE | 2022-08-02 09:10 | NUR ---
PATIENT CONSENT STATEMENT. PT CONSENTED THIS 2ND YEAR [facility] [place] RN STUDENT TO PARTICIPATE IN CARE TODAY.
[2022-08-02 09:27] LABS: BASOPHILS ABSOLUTE AUTO 0.02 K/mm3 (0.00-0.23); BASOPHILS PERCENT AUTO 0 % (0-2); EOSINOPHILS ABSOLUTE AUTO 0.51 K/mm3 (0.00-0.68); EOSINOPHILS PERCENT AUTO 8 % (0-6); Hematocrit 41.1 % (33.0-51.0); Hemoglobin 13.2 g/dL (11.5-16.0); IMMATURE GRAN ABSOLUTE AUTO 0.02 K/mm3 (0.00-0.10); IMMATURE GRAN PERCENT AUTO 0 % (0-1); LYMPHOCYTES ABSOLUTE AUTO 2.09 K/mm3 (0.84-5.20); LYMPHOCYTES PERCENT AUTO 33 % (21-46); MONOCYTES ABSOLUTE AUTO 0.66 K/mm3 (0.16-1.47); MONOCYTES PERCENT AUTO 10 % (4-13); Mean Corpuscular HGB 29.8 pg (26.0-34.0); Mean Corpuscular HGB Conc 32.1 g/dL (31.5-36.5); Mean Corpuscular Volume 93 fL (80-100); Mean Platelet Volume 9.7 fL (9.1-12.4); NEUTROPHILS ABSOLUTE AUTO 3.08 K/mm3 (1.96-9.15); NEUTROPHILS PERCENT AUTO 48 % (41-73); Platelet Count 275 K/mm3 (150-400); RDW Coefficient Variation 14.5 % (11.7-14.2); RDW Standard Deviation 49.1 fL (35.1-46.3); Red Blood Cell Count 4.43 M/mm3 (3.80-5.20); White Blood Cell Count 6.38 K/mm3 (4.00-11.30)
[2022-08-02 09:44] LABS: Albumin, Blood 3.4 g/dL (3.4-5.0); Albumin/Globulin Ratio 0.8 (0.8-1.8); Bilirubin, Total 0.7 mg/dL (0.1-1.0); Bun/Creatinine Ratio 19.2 (12.0-20.0); Calcium, Blood 9.1 mg/dL (8.5-10.1); Creatinine, Blood 1.04 mg/dL (0.40-1.00); Globulin, Blood 4.2 g/dL (2.2-4.0); Potassium, Blood 4.2 mmol/L (3.5-5.5); Total Protein, Blood 7.6 g/dL (6.4-8.2)
[2022-08-02 11:39] VITALS: BP 113/79
[2022-08-02 15:16] VITALS: BP 116/90
--- NOTE | 2022-08-02 17:05 | NUR ---
PT HAS DENIED ANY SOB, CHEST PAIN, PRESSURE OR DISCOMFORT SINCE HER ARRIVAL. PT AWARE OF PLAN FOR 1 DAY STRESS TEST TOMORROW. DISCUSSED WITH PATIENT NPO AFTER MIDNIGHT TONIGH AND NO CAFFEINE. PT UP IN ROOM WITH STANDBY ASSIST. MONITORE SR
[2022-08-02 20:07] VITALS: BP 96/77
--- NOTE | 2022-08-02 22:04 | NUR ---
ASSUMED CARE AT 1915 PATIENT WAS IN THE RESTROOM AT TIME OF REPORT. SITTING AT BEDSIDE. PATIENT WAS ABLE TO AMBULATE INDEPENDENTLY FROM RESTROOM TO BED. SCD'S IN PLACE. IV SALINE LOCKED. MONITOR SHOS SR WITH RATE 67BPM. PATIENT COMPLAINING OF JOINT PAIN. CALL MADE TO DR. MEDLEY AND ORDER OBTAINED FOR TYLENOL 650MG PO Q6H PRN.
[2022-08-02 23:36] VITALS: BP 110/85
[2022-08-03 04:08] LABS: BASOPHILS ABSOLUTE AUTO 0.02 K/mm3 (0.00-0.23); BASOPHILS PERCENT AUTO 0 % (0-2); EOSINOPHILS ABSOLUTE AUTO 0.63 K/mm3 (0.00-0.68); EOSINOPHILS PERCENT AUTO 11 % (0-6); Hematocrit 36.8 % (33.0-51.0); Hemoglobin 11.9 g/dL (11.5-16.0); IMMATURE GRAN ABSOLUTE AUTO 0.03 K/mm3 (0.00-0.10); IMMATURE GRAN PERCENT AUTO 1 % (0-1); LYMPHOCYTES ABSOLUTE AUTO 2.39 K/mm3 (0.84-5.20); LYMPHOCYTES PERCENT AUTO 42 % (21-46); MONOCYTES ABSOLUTE AUTO 0.72 K/mm3 (0.16-1.47); MONOCYTES PERCENT AUTO 13 % (4-13); Mean Corpuscular HGB 29.5 pg (26.0-34.0); Mean Corpuscular HGB Conc 32.3 g/dL (31.5-36.5); Mean Corpuscular Volume 91 fL (80-100); Mean Platelet Volume 9.4 fL (9.1-12.4); NEUTROPHILS ABSOLUTE AUTO 1.96 K/mm3 (1.96-9.15); NEUTROPHILS PERCENT AUTO 34 % (41-73); Platelet Count 223 K/mm3 (150-400); RDW Coefficient Variation 13.9 % (11.7-14.2); RDW Standard Deviation 46.9 fL (35.1-46.3); Red Blood Cell Count 4.03 M/mm3 (3.80-5.20); White Blood Cell Count 5.75 K/mm3 (4.00-11.30)
[2022-08-03 04:34] VITALS: BP 100/73
[2022-08-03 04:44] LABS: Albumin, Blood 2.9 g/dL (3.4-5.0); Albumin/Globulin Ratio 0.8 (0.8-1.8); Bilirubin, Total 0.4 mg/dL (0.1-1.0); Bun/Creatinine Ratio 22.2 (12.0-20.0); Calcium, Blood 8.7 mg/dL (8.5-10.1); Creatinine, Blood 1.08 mg/dL (0.40-1.00); Globulin, Blood 3.6 g/dL (2.2-4.0); Magnesium, Blood 1.9 mg/dL (1.6-2.4); Potassium, Blood 3.8 mmol/L (3.5-5.5); Total Protein, Blood 6.5 g/dL (6.4-8.2)
--- NOTE | 2022-08-03 05:08 | NUR ---
SHIFT SUMMARY PATIENT NPO SINCE 0000. SLEPT THROUGHOUT SHIFT. DENIES CP, PRESSURE, AND SOB. REPORTED RESOLVED JOINT PAIN ON REASSESSMENT THIS MORNING. PATIENT INDEPENDENT IN ROOM. NO OTHER CHANGES DURING SHIFT.
[2022-08-03 08:38] VITALS: BP 103/92
--- NOTE | 2022-08-03 09:11 | NUR ---
Digg TECH IN ROOM AT ABOUT 0830 FOR STRESS TEST INJECTION. PT NOW ABLE TO EAT AND GIVEN BREAKFAST TRAY.
[2022-08-03 11:34] VITALS: BP 98/64
[2022-08-03 16:56] VITALS: BP 98/73
--- NOTE | 2022-08-03 17:45 | NUR ---
TRANSFER: STATUS CHANGED TO MED WITH TELE. REPORT PASSED TO SURGICAL FLOOR ROSALINDA GIORDANO AT 1730. PT MOVED TO ROOM 228 VIA WHEELCHAIR. PT AWARE.
--- NOTE | 2022-08-03 17:48 | NUR ---
SUMMARY: NO ACUTE CHANGE TODAY. PT DENIED CP/PRESSURE. AMBULATORY IN ROOM. VSS, NO DIZZINESS. TELE WNL. PT GIVEN TYLENOL X1 FOR R CHRONIC SHOULDER PAIN. PT IS EATING AND VOIDING. PLAN IS FOR STRESS TEST TOMORROW.
--- NOTE | 2022-08-03 17:52 | NUR ---
1730 TRANSFERRED TO [facility] VIA WHEELCHAIR. PT ALERT, ORIENTED AND COOPEATIVE. PT DENIES ANY PAIN OR SOB. PT AWARE OF NPO AFTER MIDNIGHT FOR STRESS TEST. MONITOR SHOWS SR
[2022-08-03 20:03] VITALS: BP 121/90
[2022-08-03 21:30] VITALS: BP 133/92
[2022-08-04 04:00] VITALS: BP 168/81
--- NOTE | 2022-08-04 07:42 | NUR ---
SUMMARY PT NPO PENDING SECOND PORTION OF STRESS TEST.
[2022-08-04 08:24] VITALS: BP 110/80
[2022-08-04 14:29] VITALS: BP 116/67
--- NOTE | 2022-08-04 16:46 | NUR ---
discharging DC'D IV, CATHETER INTACT. RETURNED TELE UNIT. REVIEWED DC INSTRUCTIONS W/PT; VERBALIZED UNDERSTANDING. PT'S SPOUSE BEDSIDE AND PT IN WC. DECLINED STAFF TAKING PATIENT OUT, STATED WANTS SPOUSE TO WHEEL OUT.
--- NOTE | 2022-08-04 16:57 | NUR ---
dishcarged PT LEFT UNIT IN WC, ACCOMPANIED BY SPOUSE W/POSSESSIONS AND DC PAPERWORK IN HAND.
== END 2022-08-04 16:56 | disposition home or self-care (01) ==
LOC: PCU 08:31 → SURS 08-03 17:30
PROVIDERS: ADMIT Internal Medicine
DX: I25.118 Atherosclerotic heart disease of native coronary artery with other forms of angina pectoris (principal); C85.90 Non-Hodgkin lymphoma, unspecified, unspecified site; I12.9 Hypertensive chronic kidney disease with stage 1 through stage 4 chronic kidney disease, or unspecified chronic kidney disease; N18.31 Chronic kidney disease, stage 3a; E11.22 Type 2 diabetes mellitus with diabetic chronic kidney disease; Z88.8 Allergy status to other drugs, medicaments and biological substances; Z88.5 Allergy status to narcotic agent
CPT/HCPCS: 36415; 71046; 78452; 80053; 82947; 83735; 84484; 85025; 93005; 93010; 93017; 93306; 96372; 96374; 96375; A9270; A9500; G0378; G0379; J0706; J1650; J2405; J2785

== ENCOUNTER 2022-10-23 09:23 | Emergency (ER) | payer OTHER ==
[~2022-10-23] VITALS: Ht 165.1 cm; Wt 92.5 kg
[~2022-10-23 09:23] MED LIST changes: +NYSTATIN PO; +ONDA4ODT MM
[2022-10-23 10:28] LABS: BASOPHILS ABSOLUTE AUTO 0.06 K/mm3 (0.00-0.23); BASOPHILS PERCENT AUTO 1 % (0-2); EOSINOPHILS ABSOLUTE AUTO 0.25 K/mm3 (0.00-0.68); EOSINOPHILS PERCENT AUTO 4 % (0-6); Hematocrit 41.3 % (33.0-51.0); IMMATURE GRAN ABSOLUTE AUTO 0.02 K/mm3 (0.00-0.10); IMMATURE GRAN PERCENT AUTO 0 % (0-1); LYMPHOCYTES ABSOLUTE AUTO 2.64 K/mm3 (0.84-5.20); LYMPHOCYTES PERCENT AUTO 43 % (21-46); MONOCYTES ABSOLUTE AUTO 0.58 K/mm3 (0.16-1.47); MONOCYTES PERCENT AUTO 9 % (4-13); Mean Corpuscular HGB 30.3 pg (26.0-34.0); Mean Corpuscular HGB Conc 33.9 g/dL (31.5-36.5); Mean Corpuscular Volume 89 fL (80-100); Mean Platelet Volume 9.7 fL (9.1-12.4); NEUTROPHILS ABSOLUTE AUTO 2.63 K/mm3 (1.96-9.15); NEUTROPHILS PERCENT AUTO 43 % (41-73); Platelet Count 235 K/mm3 (150-400); RDW Coefficient Variation 13.3 % (11.7-14.2); RDW Standard Deviation 43.4 fL (35.1-46.3); Red Blood Cell Count 4.62 M/mm3 (3.80-5.20); White Blood Cell Count 6.18 K/mm3 (4.00-11.30)
[2022-10-23 11:54] LABS: Albumin/Globulin Ratio 1.1 (0.8-1.8); Bilirubin, Total 0.4 mg/dL (0.1-1.0); Calcium, Blood 9.9 mg/dL (8.5-10.1); Globulin, Blood 3.8 g/dL (2.2-4.0); Potassium, Blood 3.9 mmol/L (3.5-5.5); Total Protein, Blood 7.8 g/dL (6.4-8.2)
[2022-10-23 14:39] LABS: U Amphetamine Screen Not Detected; U Barbituate Screen Not Detected; U Benzodiazapine Screen Not Detected; U Buprenorphine Screen Not Detected; U Cannabinoids Screen Not Detected; U Cocaine Screen Not Detected; U Methadone Screen Not Detected; U Methamphetamine Screen Not Detected; U Opiates Screen Not Detected; U Oxycodone Screen Not Detected; U Phencyclidine Screen Not Detected; U Propoxyphene Screen Not Detected
[2022-10-23 16:24] VITALS: BP 154/76
== END 2022-10-23 16:24 | disposition home or self-care (01) ==
LOC: ER 09:23
PROVIDERS: Student in an Organized Health Care Education/Training Program
DX: I65.22 Occlusion and stenosis of left carotid artery (principal); I10 Essential (primary) hypertension; E78.5 Hyperlipidemia, unspecified; R20.0 Anesthesia of skin; Z88.8 Allergy status to other drugs, medicaments and biological substances; Z88.5 Allergy status to narcotic agent; Z88.6 Allergy status to analgesic agent; Z79.899 Other long term (current) drug therapy; Z79.82 Long term (current) use of aspirin
CPT/HCPCS: 70450; 70551; 80053; 83735; 85025; 93005; 93010; 93880; 96374; 99284-25; J2060

== ENCOUNTER 2023-10-31 06:50 | Day surgery (SDC) | payer OTHER ==
[~2023-10-31] VITALS: Ht 165.1 cm; Wt 93.9 kg
[2023-10-31] VITALS (9 sets, daily range): BP systolic 109–162; BP diastolic 55–105
[2023-10-31] MEDS ORDERED: NS 500 ML IV ONE (07:17)
[2023-10-31] MEDS ORDERED: Heparin Sodium 1000 Units/ML 10ML MDV ONE ×2 (07:17→08:07)
[2023-10-31] MEDS ORDERED: NS 0 ML IV ONE (07:17)
[2023-10-31] MEDS ORDERED: Nitroglycerin 2 MG/20 ML BTL ONE (07:18)
[2023-10-31] MEDS ORDERED: NS 1,000 ML IV ONE ×2 (07:47→08:07)
[2023-10-31] MEDS ORDERED: Midazolam HCl 1MG / ML 2ML Vial ONE (08:07)
[2023-10-31] MEDS ORDERED: FentaNYL Citrate 50 MCG/ML 2 ML Injection ONE (08:07)
[2023-10-31] MEDS ORDERED: HydrALAZINE HCl 20 MG / ML 1ML Vial ONE (09:06)
[2023-10-31] MEDS ORDERED: Ondansetron HCl 2 MG / ML 2ML Vial ONE (09:25)
--- NOTE | 2023-10-31 09:30 | NUR ---
PT back to recovery room. Pt c/o nausea, medicated with zofran. L groin soft and non tender. dressing clear.
--- NOTE | 2023-10-31 09:51 | NUR ---
PT REPORTS FEELING BETTER. PT GIVEN SIPS OF WATER, PT TOLERATED WELL. C/O BACK PAIN. L GROIN SOFT. UPDATED ON PLAN OF CARE.
--- NOTE | 2023-10-31 11:27 | NUR ---
PT SITTING UP 30 DEGREES, EATING AND TALKING WITH SPOUSE. L GROIN SOFT, NON TENDER
--- NOTE | 2023-10-31 11:59 | NUR ---
PT VERBALIZE D/C INSTRUCTIONS. L GROIN SOFT. PT SPOUSE VERBALIZE INSTRUCTIONS. IV D/C CATHETER INTACT. PT WHEELED OUT OF DEPT.
== END 2023-10-31 12:00 | disposition home or self-care (01) ==
LOC: MHTC 06:50
DX: I70.223 Atherosclerosis of native arteries of extremities with rest pain, bilateral legs (principal); I10 Essential (primary) hypertension; E78.5 Hyperlipidemia, unspecified; I25.10 Atherosclerotic heart disease of native coronary artery without angina pectoris; Z95.5 Presence of coronary angioplasty implant and graft; Z87.891 Personal history of nicotine dependence; Z88.6 Allergy status to analgesic agent; Z88.8 Allergy status to other drugs, medicaments and biological substances; Z79.82 Long term (current) use of aspirin; Z79.899 Other long term (current) drug therapy
CPT/HCPCS: 36200; 36245; 36248; 37225; 37228; 37232; 75625; 75716; 75774; 76937; 99152; 99153; C1714; C1725; C1760; C1769; C1887; C1894; J0360; J1644; J2250; J2405; J3010; J7030; J7050; Q9967

== ENCOUNTER 2023-11-15 06:58 | Day surgery (SDC) | payer OTHER ==
[~2023-11-15] VITALS: Ht 165.1 cm; Wt 93.9 kg
[2023-11-15] VITALS (14 sets, daily range): BP systolic 103–148; BP diastolic 66–132
[~2023-11-15 06:58] MED LIST changes: +ACET325 PO; +B-12500 MC2 PO; +CRANBERRY; +LACT; +PRAV20 PO; +TURMERIC; +Voltaren100 GM TOP
[2023-11-15] MEDS ORDERED: NS 500 ML IV ONE (07:27)
[2023-11-15] MEDS ORDERED: NS 1,000 ML IV ONE ×2 (07:27→08:08)
[2023-11-15] MEDS ORDERED: Nitroglycerin 2 MG/20 ML BTL ONE (07:27)
[2023-11-15] MEDS ORDERED: Heparin Sodium 1000 Units/ML 10ML MDV ONE (07:27)
[2023-11-15] MEDS ORDERED: FentaNYL Citrate 50 MCG/ML 2 ML Injection ONE (08:08)
[2023-11-15] MEDS ORDERED: Midazolam HCl 1MG / ML 2ML Vial ONE (08:08)
[2023-11-15] MEDS ORDERED: Ondansetron HCl 2 MG / ML 2ML Vial ONE (08:58)
--- NOTE | 2023-11-15 09:51 | NUR ---
PT TO RECOVERY ROOM S/P ANGIOPLASTY AND STENT PLACEMENT TO LEFT DISTAL SFA/POPITEAL.PT AWAKE AND ALERT. C/O MILD NAUSEA. RIGHT GROIN CHECKED, AREA SOFT WITHOUT TENDERNESS, SWELLING, OR HEMATOMA. RIGHT DP 2+, RIGHT PT DOPPLER, LEFT DP 1+, LEFT PT DOPPLER. PT'S AT BEDSIDE.
--- NOTE | 2023-11-15 10:16 | NUR ---
RIGHT GROIN AND BLE CIRC CHECKED Q15MIN. RIGHT GROIN AND CIRC CHECK REMAIN UNCHANGED AND STABLE/WNL. NAUSEA IMPROVING.
--- NOTE | 2023-11-15 10:48 | NUR ---
HOB AT 30DEGREES. RIGHT GROIN AND CIRC CHECK REMAIN UNCHANGED AND STABLE. PT TOLERATING PO FOOD/DRINKS. PT W/O COMPLAINTS.
[2023-11-15] MEDS ORDERED: Clopidogrel Bisulfate 300 MG Cap ONE (11:43)
--- NOTE | 2023-11-15 12:55 | NUR ---
PT GIVEN PLAVIX 300MG PO, PLAVIX RX FAXED TO [facility] PER PT'S REQUEST. VSS, SOME BP'S ON LOWER SIDE WITH MAP >65. PT DENIES SYMPTOMS SUCH DIZZINESS, NAUSEA, PAIN. PT OOB TO CHAIR AND BATHROOM. RIGHT GROIN SITE REMAINED STABLE W/O CHANGE. VERBAL AND WRITTEN DC INFO GIVEN TO PATIENT WITH CLEAR UNDERSTANDING. PT DC'D HOME IN STABLE CONDITION AT 1240. PT ESCORTED TO CAR VIA WHEELCHAIR IN CARE OF PT'S .
== END 2023-11-15 14:29 | disposition home or self-care (01) ==
LOC: MHTC 06:58
DX: I70.223 Atherosclerosis of native arteries of extremities with rest pain, bilateral legs (principal); I10 Essential (primary) hypertension; I25.10 Atherosclerotic heart disease of native coronary artery without angina pectoris; E78.5 Hyperlipidemia, unspecified; G62.9 Polyneuropathy, unspecified; Z87.891 Personal history of nicotine dependence; Z88.5 Allergy status to narcotic agent; Z88.6 Allergy status to analgesic agent; Z88.8 Allergy status to other drugs, medicaments and biological substances; Z79.1 Long term (current) use of non-steroidal anti-inflammatories (NSAID); Z79.82 Long term (current) use of aspirin; Z79.899 Other long term (current) drug therapy; Z90.710 Acquired absence of both cervix and uterus; Z86.73 Personal history of transient ischemic attack (TIA), and cerebral infarction without residual deficits
CPT/HCPCS: 37226; 37228; 75716; 75774; 76937; 99152; 99153; A9270; C1714; C1725; C1760; C1769; C1874; C1887; C1894; C2623; J1644; J2250; J2405; J3010; J7030; J7050; Q9967

== ENCOUNTER 2024-12-23 06:46 | Day surgery (SDC) | payer OTHER ==
[~2024-12-23] VITALS: Ht 165.1 cm; Wt 84.9 kg
[2024-12-23] MEDS ORDERED: PRAV20 (07:09)
[2024-12-23] MEDS ORDERED: NITR.4SL (07:09)
[2024-12-23] MEDS ORDERED: OMEP20ER (07:09)
[2024-12-23] MEDS ORDERED: FAMO20 (07:10)
[2024-12-23] MEDS ORDERED: PROBIOTIC ACID1 EAC7 (07:10)
[2024-12-23 08:35] VITALS: BP 183/79
== END 2024-12-23 09:03 | disposition home or self-care (01) ==
LOC: ORSCSDS 06:46
PROVIDERS: Internal Medicine Gastroenterology
PROC: 0DB58ZX Excision of Esophagus, Via Natural or Artificial Opening Endoscopic, Diagnostic (ICD-10-PCS; principal; 2024-12-23 08:00)
PROC: 0D758ZZ Dilation of Esophagus, Via Natural or Artificial Opening Endoscopic (ICD-10-PCS; principal; 2024-12-23 08:00)
DX: K21.9 Gastro-esophageal reflux disease without esophagitis (principal); K22.2 Esophageal obstruction; E78.5 Hyperlipidemia, unspecified; Z85.72 Personal history of non-Hodgkin lymphomas; Z86.73 Personal history of transient ischemic attack (TIA), and cerebral infarction without residual deficits; I25.10 Atherosclerotic heart disease of native coronary artery without angina pectoris; Z79.82 Long term (current) use of aspirin; Z79.899 Other long term (current) drug therapy; Z79.02 Long term (current) use of antithrombotics/antiplatelets; Z87.891 Personal history of nicotine dependence
CPT/HCPCS: 82947; 88305; 88312; J2704; J7120